=== PATIENT | female | born 1990 | race Caucasian/White ===

== ENCOUNTER 2021-09-08 01:03 | Inpatient (IN) ==
[2021-09-08] MEDS ORDERED: OXYTOCIN 30 UNITS/500 ML BAG IV PRN ×3 (02:03→07:43)
[2021-09-08 02:52] LABS: Hematocrit (blood only) 34.4 % (37-47); Hemoglobin 11.2 g/dL (12.0-16.0); Mean Corpuscular Volume 92.2 fL (80-100); Mean Platelet Volume 11.2 fL (7.4-10.4); Platelet Count 200 K/uL (130-400); RDW Coefficient of Variation 14.3 % (11.5-14.5); RDW Standard Deviation 47.8 fL (36.4-46.3); Red Blood Count 3.73 M/uL (4.2-5.4); White Blood Count 10.35 K/uL (4.8-10.8)
[2021-09-08] MEDS: LACTATED RINGER'S 1,000 ML IV PRN ×2 (03:21→04:55)
[2021-09-08 03:27] LABS: Mean Corpuscular Hgb Conc 32.6 g/dL (32-36)
[2021-09-08] MEDS ORDERED: ePHEDrine sulfate 50 MG/ML AMP ONE (04:03)
[2021-09-08] MEDS ORDERED: BUPIVACAINE 0.25% 30 ML VIAL ONE (04:03)
[2021-09-08] MEDS ORDERED: SODIUM CHLORIDE 0.9% INJ 10 ML VIAL ONE (04:03)
[2021-09-08] MEDS ORDERED: fentaNYL 2MCG/ML ROPIVACAINE 1.25MG/ML 100 ML BAG EPI ONE (04:04)
[2021-09-08] MEDS ORDERED: fentaNYL citrate 100 MCG/2 ML VIAL ONE (04:04)
[2021-09-08] MEDS ORDERED: ONDANSETRON INJ 2 MG/ML 2 ML VIAL IV PRN ×2 (04:27→08:38)
[2021-09-08] MEDS ORDERED: NALOXONE HCL 1 MG in SODIUM CHLORIDE 0.9% 1000ML 1,000 ML IV PRN (04:27)
[2021-09-08] MEDS ORDERED: diphenhydrAMINE 50 MG/ML VIAL IV PRN (04:27)
[2021-09-08] MEDS ORDERED: NALOXONE HCL 0.4 MG/1 ML VIAL/CARP IV PRN (04:27)
[2021-09-08] MEDS ORDERED: ePHEDrine sulfate 50 MG/ML AMP IV PRN (04:27)
[2021-09-08] MEDS ORDERED: fentaNYL 2MCG/ML ROPIVACAINE 1.25MG/ML 100 ML BAG EPI PRN (04:27)
[2021-09-08] MEDS ORDERED: NALBUPHINE HCL INJ 10 MG/ML AMP IV PRN (04:27)
--- NOTE | 2021-09-08 04:27 | Anesthesiology Consultation ---
Date of Service September 08, 2021 Assessment & Plan (1) Encounter for pre-operative examination: Chart Review Chart Review: Acceptable Risk for Labor Epidural Consults Requested none ASA ASA2 Proposed Anesthesia Anesthesia Type: Labor Epidural Risk / Benefits Reviewed With: PT / POA / Parent / Guardian, Accepts Plan and Informed Consent Obtained History Height/Weight Height: 5 ft 3 in Weight: 83.007 kg Allergies Allergy/AdvReac Type Severity Reaction Status Date / Time No Known Allergies Allergy Verified 09/08/21 01:23 Medications Home Medications Medication Instructions Recorded Confirmed Last Taken vits no.124-ferrous fum 800 tab PO DAILY 08/11/21 09/08/21 09/07/21 27 mg iron-folic acid 800 mcg tablet ( Vitamin) omeprazole 20 mg capsule,delayed 20 mg PO DAILY PRN 09/08/21 09/08/21 Unknown release Active Medications Generic Name Dose Route Start Last Admin Trade Name Freq PRN Reason Stop Dose Admin Lactated Ringer's 1,000 mls @ 125 mls/hr 09/08/21 02:03 09/08/21 04:00 Lr IV 09/10/21 02:02 999 mls/hr .Q8H PRN Infusion L&D Protocol Protocol Oxytocin 30 units in 500 mls @ 2 mls/hr 09/08/21 02:46 09/08/21 03:21 Pitocin IV 09/10/21 02:45 0.12 units/hr .Q24H PRN 2 mls/hr Labor Induction/Augmentation Administration Protocol 0.12 UNITS/HR Past Medical History Medical History Abnormal menses Spontaneous vaginal delivery 09/2013 [facility] Exercise / Class Metabolic Activity II 4-5 Yardwork/Stairs/Walk up hill Past Family History Family History Other No family history of adverse response to anesthesia Past Surgical History Surgical History History of wisdom tooth extraction Past Anesthesia History No Hx of Anesthesia Complications and No Family Hx of Anesthesia Complications History of PONV No Hx of PONV and No Hx of Motion Sickness Social History Smoking Status: Never smoker Hx Alcohol Use: No Hx Substance Use: No substance use type: does not use Physical Exam Vital Signs Last Vital Signs Temp 98.1 F 09/08/21 03:20 Pulse 85 09/08/21 03:20 Resp 18 09/08/21 03:20 BP 123/78 09/08/21 03:20 ENMT Mouth: no dentition abnormality Thyromental Distance: > or= 3.5 Finger Breadths Mallampati Class: II Neck normal visual inspection Respiratory normal respiratory effort Auscultation: lungs clear to auscultation bilaterally Cardiovascular Rate/Rhythm: regular rate and regular rhythm Testing Laboratory Results 09/08/21 02:36
[2021-09-08] MEDS ORDERED: SUPERCREAM 0.870% 15 GM JAR EXT PRN (07:43)
[2021-09-08] MEDS ORDERED: METHYLERGONOVINE MALEATE 0.2 MG/ML AMP IM ONE (07:43)
[2021-09-08] MEDS ORDERED: bisacodyL 10 MG SUPP PR PRN (07:43)
[2021-09-08] MEDS ORDERED: ACETAMINOPHEN W/CODEINE #3 1 TAB PO PRN (07:43)
[2021-09-08] MEDS ORDERED: ACETAMINOPHEN 325 MG TAB PO PRN (07:43)
[2021-09-08] MEDS ORDERED: oxyCODONE/ACETAMINOPHEN 5mg/325mg TAB PO PRN (07:43)
[2021-09-08] MEDS ORDERED: HYDROCORTISONE ACETATE 25 MG SUPP PR PRN (07:43)
[2021-09-08] MEDS ORDERED: IBUPROFEN 600 MG TAB PO PRN (07:43)
[2021-09-08] MEDS ORDERED: BENZOCAINE 20% AER SPR 82.5 GM CAN EXT PRN (07:43)
[2021-09-08] MEDS ORDERED: DIPHTHERIA/TETANUS/PERTUSSIS 0.5 ML SYR/VIAL IM ONE (07:43)
--- NOTE | 2021-09-08 08:38 | Anesthesia Procedure Note ---
Date of Service September 08, 2021 Anesthesia Post Epidural Note Vital Signs Vital Signs: Temp Pulse Resp BP Pulse Ox 36.6 C 83 18 118/72 97 09/08/21 07:00 09/08/21 08:22 09/08/21 07:00 09/08/21 08:22 09/08/21 07:34 Pain Intensity Bilateral Abdomen: Pain Intensity: 2 Notes Mental Status: alert / awake / arousable and participated in evaluation Patient Amnestic to Procedure: No Nausea / Vomiting: adequately controlled Pain: adequately controlled Airway Patency, RR, SpO2: stable & adequate BP & HR: stable & adequate Hydration State: stable & adequate Neuraxial Anesthesia: was administered and sensory block is resolving Anesthetic Complications: no major complications apparent and Pt Satisfied with anesthetic care Epidural: Removed without complications and With tip intact
[2021-09-08] MEDS ORDERED: PROMETHAZINE HCL 6.25 MG in SODIUM CHLORIDE 0.9% 50 ML IV PRN (08:55)
--- NOTE | 2021-09-08 10:26 | Delivery Summary ---
She is a 3, para 2, 1 spontaneous AB. Blood type is A positive, group B strep negative. She was admitted with spontaneous rupture of membranes at 38 weeks and 3 days. On admission, she was li ke 4 cm dilated. She was not having any contractions. She was started on IV Pitocin. When she got up to about 5-6 cm, she requested and received epidural for pain control. After she got adequate pain control, the Pitocin continued to be increased. She went to full dilatation, delivered a live male infant via direct occiput anterior position over an intact perineum. There was a nuchal cord x2, whi ch was reduced over the head. Infant was suctioned through the mouth and the nose. Shoulders were d elivered without difficulty. Cord was allowed to pulse for 1 minute and clamped and cut. Cord blood was taken. With IV Pitocin running, the placenta was removed intact. Inspection of the perineum re vealed no lacerations. In addition to the Pitocin, she was given an injection of Methergine. Hemosta sis was good. Estimated blood loss was 200 mL. Apgars deferred to the nurses. Job ID: [id number]
[2021-09-08] MEDS ORDERED: LACTATED RINGER'S 1,000 ML IV ONE (15:51)
[2021-09-08] MEDS: DOCUSATE SODIUM 100 MG CAP PO SCH (21:28)
[2021-09-09 06:05] LABS: Hematocrit (blood only) 35.9 % (37-47); Hemoglobin 11.3 g/dL (12.0-16.0); Mean Corpuscular Hemoglobin 29.4 pg (25-34); Mean Corpuscular Hgb Conc 31.5 g/dL (32-36); Mean Corpuscular Volume 93.5 fL (80-100); Platelet Count 221 K/uL (130-400); RDW Coefficient of Variation 14.3 % (11.5-14.5); RDW Standard Deviation 48.7 fL (36.4-46.3); Red Blood Count 3.84 M/uL (4.2-5.4)
[2021-09-09] MEDS: DOCUSATE SODIUM 100 MG CAP PO SCH ×2 (09:15→20:45)
[2021-09-09] MEDS: PRENATAL VITAMIN 1 TAB PO SCH (09:15)
--- NOTE | 2021-09-09 12:07 | Obstetrical Progress Note ---
Date of Service September 09, 2021 Assessment & Plan Admission and Anticipated Discharge Date Admission Date: September 08, 2021 Subjective abdomen soft and non ntender no calf tenderness ambulating well vaginal bleeding scant hgb 11.3 Results & Data ([facility]) Vital Signs (Past 12 Hours) Vital Signs Temp Pulse Pulse Resp BP Pulse Ox 09/09/21 07:35 37.2 C 80 18 116/73 99 09/09/21 03:30 37.2 C 86 17 122/82 96
[2021-09-09] MEDS ORDERED: AMMONIA, AROMATIC INHAL 1 EA AMP INH ONE (12:11)
[2021-09-09] MEDS ORDERED: bisacodyL 5 MG TABEC PO SCH (20:00)
[2021-09-10 06:28] LABS: Hematocrit (blood only) 37.9 % (37-47); Hemoglobin 12.1 g/dL (12.0-16.0)
[2021-09-10] MEDS: PRENATAL VITAMIN 1 TAB PO SCH (08:01)
[2021-09-10] MEDS: DOCUSATE SODIUM 100 MG CAP PO SCH (08:01)
--- NOTE | 2021-09-10 09:12 | Obstetrical Progress Note ---
Date of Service September 10, 2021 Assessment & Plan Admission and Anticipated Discharge Date Admission Date: September 08, 2021 Subjective abdomen soft and non tender no calf tenderness ambulating well vaginal Results & Data ([facility]) Vital Signs (Past 12 Hours) Vital Signs Temp Pulse Resp BP Pulse Ox 09/10/21 07:26 36.7 C 78 16 112/76 96 09/09/21 23:05 36.8 C 82 18 118/79 98
--- NOTE | 2021-09-10 09:14 | Obstetrical Progress Note ---
Date of Service September 10, 2021 Assessment & Plan Admission and Anticipated Discharge Date Admission Date: September 08, 2021 Subjective abdomen soft and non tender no calf tenderness ambulating well vaginal bleeding scant hgb 12.1 Results & Data ([facility]) Vital Signs (Past 12 Hours) Vital Signs Temp Pulse Resp BP Pulse Ox 09/10/21 07:26 36.7 C 78 16 112/76 96 09/09/21 23:05 36.8 C 82 18 118/79 98
== END 2021-09-10 12:25 | disposition home or self-care (01) | DRG 807 ==
LOC: OPB 01:03 → 4S1 01:07 → 4S2 14:29
DX: Z37.0 Single live birth; Z3A.38 38 weeks gestation of pregnancy; O42.92 Full-term premature rupture of membranes, unspecified as to length of time between rupture and onset of labor; O69.81X0 Labor and delivery complicated by cord around neck, without compression, not applicable or unspecified

== ENCOUNTER 2023-02-06 19:38 | Inpatient (IN) ==
[2023-02-06] MEDS ORDERED: OXYTOCIN 30 UNITS/500 ML BAG IV PRN ×2 (20:10→20:16)
[2023-02-06] MEDS ORDERED: LIDOCAINE 1% LOCAL 20 ML VIAL INFIL PRN (20:10)
[2023-02-06] MEDS: LACTATED RINGER'S 1,000 ML IV PRN ×2 (21:30→23:42)
[2023-02-06] MEDS ORDERED: fentaNYL citrate PF 100 MCG/2 ML VIAL ONE (22:48)
[2023-02-06] MEDS ORDERED: LIDOCAINE 2%/EPINEPHRINE 1:200,000 20 ML PF ONE (22:48)
[2023-02-06] MEDS ORDERED: BUPIVACAINE 0.25% PF 30 ML VIAL ONE (22:48)
[2023-02-06] MEDS ORDERED: SODIUM CHLORIDE 0.9% PF INJ 10 ML VIAL ONE (22:48)
[2023-02-06] MEDS ORDERED: fentaNYL 2MCG/ML ROPIVACAINE 1.25MG/ML 100 ML BAG EPI ONE (22:49)
[2023-02-06] MEDS ORDERED: ePHEDrine sulfate 50 MG/ML AMP ONE (22:50)
--- NOTE | 2023-02-06 22:50 | Anesthesiology Consultation ---
Date of Service February 06, 2023 Assessment & Plan ASA ASA2 Proposed Anesthesia Anesthesia Type: Labor Epidural Risk / Benefits Reviewed With: PT / POA / Parent / Guardian, Accepts Plan and Informed Consent Obtained History Height/Weight Height: 5 ft 2 in Weight: 80.931 kg Allergies Allergy/AdvReac Type Severity Reaction Status Date / Time No Known Allergies Allergy Verified 09/08/21 01:23 Medications Home Medications Medication Instructions Recorded Confirmed Last Taken vits no.124-ferrous fum 800 tab PO DAILY 08/11/21 02/06/23 02/05/23 27 mg iron-folic acid 800 mcg tablet ( Vitamin) omeprazole 20 mg capsule,delayed 20 mg PO DAILY PRN Heartburn 09/08/21 02/06/23 Unknown release Active Medications Generic Name Dose Route Start Last Admin Trade Name Amilcarq PRN Reason Stop Dose Admin Lactated Ringer's 1,000 mls @ 125 mls/hr 02/06/23 20:10 02/06/23 21:30 Lr IV 02/08/23 20:09 125 mls/hr .Q8H PRN Administration L&D Protocol Protocol Oxytocin 30 units in 500 mls @ 4 mls/hr 02/06/23 20:16 02/06/23 22:10 Pitocin IV 02/08/23 20:15 0.24 units/hr .Q24H PRN 4 mls/hr Labor Induction/Augmentation Titration Protocol 0.24 UNITS/HR Past Medical History Medical History Abnormal menses Spontaneous vaginal delivery 09/2013 [facility] Exercise / Class Metabolic Activity II 4-5 Yardwork/Stairs/Walk up hill Past Family History Family History Other No family history of adverse response to anesthesia Past Surgical History Surgical History History of wisdom tooth extraction Past Anesthesia History No Hx of Anesthesia Complications and No Family Hx of Anesthesia Complications History of PONV No Hx of PONV and No Hx of Motion Sickness Social History Smoking Status: Never smoker Do You Dip or Chew Tobacco: No Hx Alcohol Use: No Hx Substance Use: No substance use type: does not use Review of Systems denies fever/cough/ colds/ chest pain/ SOB/ YUNIOR denies YUNIOR Physical Exam Vital Signs Last Vital Signs Temp 36.8 C 02/06/23 19:52 Pulse 101 H 02/06/23 19:57 Resp 18 02/06/23 19:52 BP 114/67 02/06/23 19:57 ENMT Mouth: no TMJ abnormality and no dentition abnormality Thyromental Distance: > or= 3.5 Finger Breadths Mallampati Class: II Neck neck extension not limited Respiratory normal respiratory effort; no respiratory distress Auscultation: lungs clear to auscultation bilaterally Cardiovascular Rate/Rhythm: regular rate and regular rhythm Neurologic moves all extremities Psychiatric Orientation: alert and oriented x 3
[2023-02-06] MEDS ORDERED: diphenhydrAMINE 50 MG/ML VIAL IV PRN (22:51)
[2023-02-06] MEDS ORDERED: fentaNYL citrate PF 100 MCG/2 ML VIAL EPI STA (22:51)
[2023-02-06] MEDS ORDERED: NALOXONE HCL 0.4 MG/1 ML VIAL/CARP IV PRN (22:51)
[2023-02-06] MEDS ORDERED: BUPIVACAINE 0.25% PF 30 ML VIAL EPI STA (22:51)
[2023-02-06] MEDS ORDERED: fentaNYL 2MCG/ML ROPIVACAINE 1.25MG/ML 100 ML BAG EPI PRN (22:51)
[2023-02-06] MEDS ORDERED: ONDANSETRON INJ 2 MG/ML 2 ML VIAL IV PRN (22:51)
[2023-02-06] MEDS ORDERED: NALOXONE HCL 1 MG in SODIUM CHLORIDE 0.9% 1000ML 1,000 ML IV PRN (22:51)
[2023-02-06] MEDS ORDERED: ePHEDrine sulfate 50 MG/ML AMP IV PRN (22:51)
[2023-02-06] MEDS ORDERED: SODIUM CHLORIDE 0.9% PF INJ 10 ML VIAL EPI STA (22:51)
[2023-02-06] MEDS ORDERED: LIDOCAINE 2%/EPINEPHRINE 1:200,000 20 ML PF EPI STA (22:51)
[2023-02-06] MEDS ORDERED: BUPIVACAINE 0.25% PF 30 ML VIAL EPI PRN (22:51)
[2023-02-06] MEDS ORDERED: NALBUPHINE HCL INJ 10 MG/ML AMP IV PRN (22:51)
[2023-02-06] MEDS ORDERED: fentaNYL citrate PF 100 MCG/2 ML VIAL EPI PRN (22:51)
[2023-02-06] MEDS ORDERED: ROPIVACAINE 0.5% PF 5 MG/ML 20 ML VIAL EPI PRN (22:51)
[2023-02-06] MEDS ORDERED: LIDOCAINE 2% MPF LOCAL 5 ML VIAL EPI PRN (22:51)
[2023-02-06] MEDS ORDERED: SODIUM CHLORIDE 0.9% PF INJ 10 ML VIAL EPI PRN (22:51)
[2023-02-06 23:00] LABS: Hematocrit (blood only) 33.2 % (37.0-47.0); Hemoglobin 10.9 g/dl (12.0-16.0); Mean Corpuscular Hemoglobin 28.5 pg (25.0-34.0); Mean Corpuscular Hgb Conc 32.8 g/dL (32.0-36.0); Mean Corpuscular Volume 86.9 fL (80.0-100.0); Mean Platelet Volume 11.3 fL (9.4-12.4); Platelet Count 199 K/uL (130-400); RDW Standard Deviation 43.8 fL (36.4-46.3); Red Blood Count 3.82 M/uL (4.20-5.40); White Blood Count 10.08 K/ul (4.8-10.8)
[2023-02-07] MEDS ORDERED: METHYLERGONOVINE MALEATE 0.2 MG/ML AMP IM ONE (01:11)
[2023-02-07] MEDS ORDERED: OXYTOCIN 30 UNITS/500 ML BAG IV PRN (01:11)
[2023-02-07] MEDS ORDERED: oxyCODONE/ACETAMINOPHEN 5mg/325mg TAB PO PRN (01:11)
[2023-02-07] MEDS ORDERED: ACETAMINOPHEN 325 MG TAB PO PRN (01:11)
[2023-02-07] MEDS ORDERED: HYDROCORTISONE ACETATE 25 MG SUPP PR PRN (01:11)
[2023-02-07] MEDS ORDERED: ACETAMINOPHEN W/CODEINE #3 1 TAB PO PRN (01:11)
[2023-02-07] MEDS ORDERED: DIPHTHERIA/TETANUS/PERTUSSIS Vaccine (Tdap, Age 7+yrs) 0.5mL SYR/VL IM ONE (01:11)
[2023-02-07] MEDS ORDERED: BENZOCAINE 20% AER SPR 82.5 GM CAN EXT PRN (01:11)
[2023-02-07] MEDS ORDERED: bisacodyL 10 MG SUPP PR PRN (01:11)
--- NOTE | 2023-02-07 01:54 | Delivery Summary ---
DELIVERY NOTE: She is 3, para 3, blood type is A positive, group B strep negative. She was admitted at 37 weeks 6 days. She was having contractions every 5 minutes for over 2 hours. On admiss ion, she was 4-5 cm with bulging membranes. She was diagnosed as being in labor. She was augmented with IV Pitocin. When she was about 6 cm, membranes were ruptured surgically. Fluid was clear. She had an epidural for pain control. She went to full dilatation and then with about 3-4 pushes pushed out a live female infant via direct occiput anterior position over an intact perineum. Infant was s uctioned through the mouth and the nose. Shoulders were delivered without difficulty. Cord was allo wed to pulse for a minute, then clamped and cut. Cord blood was obtained and placenta was removed ma adis. Uterus contracted nicely with IV Pitocin and IM Methergine. Perineum was intact. Estimated blood loss was 100 mL. Job ID: [id number]
[2023-02-07] MEDS: IBUPROFEN 600 MG TAB PO PRN ×5 (02:52→23:16)
--- NOTE | 2023-02-07 06:57 | Anesthesia Procedure Note ---
Date of Service February 07, 2023 Anesthesia Post Epidural Note Vital Signs Vital Signs: Temp Pulse Resp BP Pulse Ox O2 Del Method 98.6 F 73 20 119/77 97 Room Air 02/07/23 03:02/07/23 03:02/07/23 03:02/07/23 03:02/07/23 03:02/07/23 03:31 Pain Intensity Abdomen: Pain Intensity: 0 Notes Mental Status: alert / awake / arousable and participated in evaluation Nausea / Vomiting: adequately controlled Pain: adequately controlled Airway Patency, RR, SpO2: stable & adequate BP & HR: stable & adequate Hydration State: stable & adequate Neuraxial Anesthesia: was administered and sensory block is resolving Anesthetic Complications: no major complications apparent and Pt Satisfied with anesthetic care Epidural: Removed without complications and With tip intact
[2023-02-07] MEDS: DOCUSATE SODIUM 100 MG CAP PO SCH ×2 (08:17→21:05)
[2023-02-07] MEDS: PRENATAL VITAMIN 1 TAB PO SCH (08:17)
[2023-02-08] MEDS: IBUPROFEN 600 MG TAB PO PRN ×2 (04:53→10:22)
[2023-02-08 06:57] LABS: Hematocrit (blood only) 32.2 % (37.0-47.0); Hemoglobin 10.3 g/dl (12.0-16.0); Mean Corpuscular Hemoglobin 28.8 pg (25.0-34.0); Mean Corpuscular Volume 89.9 fL (80.0-100.0); Mean Platelet Volume 10.8 fL (9.4-12.4); Platelet Count 180 K/uL (130-400); RDW Standard Deviation 45.3 fL (36.4-46.3); Red Blood Count 3.58 M/uL (4.20-5.40); White Blood Count 11.15 K/ul (4.8-10.8)
--- NOTE | 2023-02-08 08:35 | Obstetrical Progress Note ---
Date of Service February 08, 2023 Assessment & Plan Admission and Anticipated Discharge Date Admission Date: February 06, 2023 Subjective abdomen soft and non tender ambulating well no calf tenderness vaginal bleeding scant hgb 10.3 Results & Data Vital Signs (Past 12 Hours) Vital Signs Temp Pulse Pulse Resp BP Pulse Ox O2 Del Method 02/08/23 07:40 36.3 C L 74 18 105/66 99 Room Air 02/07/23 23:20 36.6 C 87 17 104/66 95 Room Air 02/07/23 21:05 36.7 C 88 16 110/73 96 Room Air
[2023-02-08] MEDS: PRENATAL VITAMIN 1 TAB PO SCH (10:22)
[2023-02-08] MEDS: DOCUSATE SODIUM 100 MG CAP PO SCH (10:22)
[2023-02-08] MEDS ORDERED: bisacodyL 5 MG TABEC PO SCH (20:00)
== END 2023-02-08 12:25 | disposition home or self-care (01) | DRG 807 ==
LOC: OPB 19:38 → 4S1 19:47 → 4E2 02-07 04:43